=== PATIENT | male | born 1955 | race African-American/Black ===

== ENCOUNTER 2018-06-12 19:57 | Emergency (ER) | payer SELFPAY ==
[2018-06-12] MEDS ORDERED: Ketorolac Tromethamine 60 MG/2 ML VIAL ONE (20:55)
== END 2018-06-12 21:30 | disposition home or self-care (01) ==
LOC: MADERS 19:57
DX: G89.29 Other chronic pain (principal); M79.605 Pain in left leg; H61.22 Impacted cerumen, left ear; F17.210 Nicotine dependence, cigarettes, uncomplicated
CPT/HCPCS: 96372; J1885

== ENCOUNTER 2020-08-07 16:23 | Emergency (ER) | payer SELFPAY ==
--- NOTE | 2020-08-07 19:06 | RAD ---
TWO VIEWS CHEST: 08/07/20 PROVIDED CLINICAL HISTORY: Right shoulder pain. FINDINGS: Cardiac and mediastinal silhouette is within normal limits. No focal consolidation, pleural fluid or pneumothorax apparent. IMPRESSION: No evidence for an acute cardiopulmonary process. POS: [facility]
--- NOTE | 2020-08-07 19:27 | RAD ---
RIGHT SHOULDER RADIOGRAPH THREE VIEWS: 08/07/20 PROVIDED CLINICAL HISTORY: Right shoulder pain. FINDINGS: There is no evidence for fracture or other acute osseous abnormality. Minimal acromioclavicular joint degenerative changes are seen. Subacromial space appears preserved. The glenohumeral relationship ap pears normal. IMPRESSION: No evidence for an acute osseous abnormality or significant arthropathy. POS: [facility]
[2020-08-07 20:30] LABS: Hemoglobin 17.2 g/dL (14.0-18.0); Mean Corpuscular Hemoglobin 29.9 pg (27.0-31.0); Mean Corpuscular Volume 96.5 fL (78.0-98.0); Mean Platelet Volume 8.2 fL (7.4-10.4); Platelet Count 260 thou/uL (130-400); Red Blood Cell (RBC) Count 5.76 mill/uL (4.70-6.10); White Blood Cell (WBC) Count 6.7 thou/uL (4.8-10.8)
[2020-08-07 20:41] LABS: Lymphocytes 36 % (21-51); MDiff Complete? YES; Monocytes 9 % (0-10); Neutrophil 53 % (42-75); Platelet Morphology Comment Appears Adequate; RBC Morphology Normal
[2020-08-07 20:42] LABS: ALT (SGPT) 15 U/L (8-55); AST (SGOT) 21 U/L (5-34); Albumin 4.2 g/dL (3.4-4.8); Alkaline Phosphatase 59 U/L (40-110); Anion Gap 18 mmol/L (10-20); BUN (Urea Nitrogen) 18 mg/dL (8.4-25.7); Bilirubin, Total 0.5 mg/dL (0.2-1.2); Calc. Creatinine Clearance 0 mL/min (70-130); Calcium 8.9 mg/dL (7.8-10.44); Carbon Dioxide 22 mmol/L (23-31); Chloride 105 mmol/L (98-107); Globulin 3.6 g/dL (2.4-3.5); Glucose 101 mg/dL (80-115); Potassium 4.6 mmol/L (3.5-5.1); Protein, Total 7.8 g/dL (5.8-8.1); Sodium 140 mmol/L (136-145)
[2020-08-07] MEDS ORDERED: HYDROcodone/Acetaminophen 5/325 mg Tablet ONE (21:02)
[2020-08-07] MEDS ORDERED: predniSONE 20 MG TAB ONE (21:03)
== END 2020-08-07 21:29 | disposition home or self-care (01) ==
LOC: MADERS 16:23
DX: M54.12 Radiculopathy, cervical region (principal); R94.31 Abnormal electrocardiogram [ECG] [EKG]; R03.0 Elevated blood-pressure reading, without diagnosis of hypertension; F17.210 Nicotine dependence, cigarettes, uncomplicated
CPT/HCPCS: 36415; 71046; 80053; 84484; 85025; 93005; J7512

== ENCOUNTER 2025-05-01 11:34 | Emergency (ER) | payer MEDICARE, SELFPAY ==
[2025-05-01 12:26] LABS: Hematocrit 49.7 % (42.0-52.0); Hemoglobin 15.5 g/dL (14.0-18.0); Mean Corpuscular Hemoglobin 29.5 pg (27.0-31.0); Mean Corpuscular Volume 94.8 fl (78.0-98.0); Platelet Count 287 10x3/uL (130-400); Red Blood Cell (RBC) Count 5.24 mill/uL (4.70-6.10); White Blood Cell (WBC) Count 5.3 10x3/uL (4.8-10.8)
[2025-05-01 12:34] LABS: ALT (SGPT) 7 U/L (Less than 45); AST (SGOT) 22 U/L (11-34); Albumin 3.8 g/dL (3.1-4.5); Alkaline Phosphatase 51 U/L (40-110); Anion Gap 15 mmol/L (10-20); BUN (Urea Nitrogen) 32 mg/dL (8.4-25.7); Bilirubin, Total 0.6 mg/dL (0.3-1.2); Calc. Creatinine Clearance 0 mL/min (70-130); Calcium 8.6 mg/dL (7.8-10.44); Carbon Dioxide 21 mmol/L (23-31); Chloride 109 mmol/L (98-107); Globulin 3.3 g/dL (2.4-3.5); Glucose 81 mg/dL (80-115); Potassium 4.7 mmol/L (3.5-5.1); Sodium 140 mmol/L (136-145)
[2025-05-01 12:42] LABS: MDiff Complete? YES; Manual Diff?? YES
[2025-05-01 12:43] LABS: Platelet Adequacy Comment Appears Adequate
[2025-05-01 13:27] LABS: Troponin I 0.145 ng/mL (< 0.028)
[2025-05-01] MEDS ORDERED: Aspirin 325 MG TAB ONE (13:53)
[2025-05-01] MEDS ORDERED: Enoxaparin 100 MG (1 mL) SYRINGE ONE (13:53)
[2025-05-01 16:01] LABS: Troponin I 0.275 ng/mL (< 0.028)
== END 2025-05-01 16:57 | disposition short-term general hospital (02) ==
LOC: MADERS 11:34
DX: R55 Syncope and collapse (principal); N18.30 Chronic kidney disease, stage 3 unspecified; I25.10 Atherosclerotic heart disease of native coronary artery without angina pectoris; F17.210 Nicotine dependence, cigarettes, uncomplicated; Z55.6 Problems related to health literacy; Z75.3 Unavailability and inaccessibility of health-care facilities
CPT/HCPCS: 36415; 71045; 80053; 84484; 85025; 93005; 96372; J1650